=== PATIENT | female | born 1940 | race Caucasian/White ===

== ENCOUNTER 2018-09-13 00:08 | Emergency (ER) | payer MEDICARE, MEDICAID ==
[~2018-09-13] VITALS: Ht 172.7 cm; Wt 59.0 kg
[~2018-09-13 00:08] MED LIST: ALBU6.7H INH; FLUT1DIS3 INH; HYDR-4134 PO; MONT10TA24 PO; [UNRECOGNIZED DRUG - OTHER] PO
[2018-09-13] MEDS ORDERED: ONDANSETRON HCL 4MG/2ML INJ IV STA (01:28)
[2018-09-13] MEDS ORDERED: DIAZEPAM 2 MG TABLET PO ONE (01:30)
[2018-09-13 02:10] LABS: BASOPHILS % 0.6 % (0.0-2.0); EOSINOPHILS % 0.2 % (0.0-5.0); HEMATOCRIT. 38.7 % (36.0-48.0); HEMOGLOBIN. 12.8 g/dL (12.0-16.0); LYMPHOCYTES % 18.9 % (20.0-50.0); MEAN CORPUSCULAR HEMOGLOBIN 29.3 pg (28.0-32.0); MEAN CORPUSCULAR VOLUME 88.7 fL (81.0-99.0); MEAN PLATELET VOLUME 10.4 fl (7.4-10.4); MONOCYTES % 4.2 % (2.0-8.0); NEUTROPHILS % 76.1 % (40.0-76.0); PLATELET 207 x1000/uL (130-400); RED BLOOD CELL COUNT 4.37 mill/uL (4.2-5.4); RED CELL DISTRIBUTION WIDTH 14.7 % (11.6-14.6)
[2018-09-13 02:17] LABS: CHLORIDE 107 mEq/L (98-107)
[2018-09-13 03:52] VITALS: BP 154/75
== END 2018-09-13 04:17 | disposition home or self-care (01) ==
LOC: ER 01:16
DX: R42 Dizziness and giddiness (principal); R51 Headache; R11.2 Nausea with vomiting, unspecified; J45.909 Unspecified asthma, uncomplicated; I10 Essential (primary) hypertension; Z88.0 Allergy status to penicillin; Z79.899 Other long term (current) drug therapy
CPT/HCPCS: 36415; 70450; 71045; 80053; 84484; 85025; 93005; 96374; 99284; J2405

== ENCOUNTER 2019-12-24 02:06 | Emergency (ER) | payer MEDICARE, MEDICAID ==
[~2019-12-24] VITALS: Ht 167.6 cm; Wt 76.0 kg
[~2019-12-24 02:06] MED LIST changes: -ALBU6.7H INH; +ALBU6.7H11 INH; -MONT10TA24 PO; +MONT10TA26 PO
[2019-12-24] MEDS ORDERED: AMLODIPINE 5MG TABLET PO ONE (02:30)
[2019-12-24] MEDS ORDERED: NAPROXEN 375MG TABLET PO ONE (02:30)
[2019-12-24 03:01] LABS: BASOPHILS % 1.4 % (0.0-2.0); EOSINOPHILS % 0.4 % (0.0-5.0); LYMPHOCYTES % 32.9 % (20.0-50.0); MEAN CORPUSCULAR HEMOGLOBIN 29.8 pg (28.0-32.0); MEAN CORPUSCULAR VOLUME 87.3 fL (81.0-99.0); MEAN PLATELET VOLUME 9.9 fl (7.4-10.4); MONOCYTES % 6.4 % (2.0-8.0); NEUTROPHILS % 58.9 % (40.0-76.0); PLATELET 196 x1000/uL (130-400); RED BLOOD CELL COUNT 4.35 mill/uL (4.2-5.4); RED CELL DISTRIBUTION WIDTH 14.9 % (11.6-14.6)
[2019-12-24 03:07] LABS: CHLORIDE 107 mEq/L (98-107)
[2019-12-24 04:41] VITALS: BP 163/65
== END 2019-12-24 05:27 | disposition home or self-care (01) ==
LOC: ER 02:06
DX: I10 Essential (primary) hypertension (principal); R51 Headache; R42 Dizziness and giddiness; J45.909 Unspecified asthma, uncomplicated; Z90.49 Acquired absence of other specified parts of digestive tract; Z79.899 Other long term (current) drug therapy; Z88.0 Allergy status to penicillin
CPT/HCPCS: 36415; 80053; 85025; 93005; 99284

== ENCOUNTER 2022-09-24 11:27 | Inpatient (IN) | payer MEDICARE, MEDICAID ==
[2022-09-24] VITALS (18 sets, daily range): BP systolic 130; BP diastolic 90
[~2022-09-24] VITALS: Ht 154.9 cm; Wt 49.9 kg
[~2022-09-24 11:27] MED LIST changes: -ALBU6.7H11 INH; +ALBU6.7H15 INH; +MONT-39 PO; -MONT10TA26 PO
[2022-09-24 12:19] LABS: CLARITY URINE CLEAR (CLEAR); COLOR URINE YELLOW (YELLOW); KETONES URINE NEGATIVE (NEGATIVE); LEUKOCYTE ESTERASE URINE NEGATIVE (NEGATIVE); NITRITE URINE NEGATIVE (NEGATIVE); OCCULT BLOOD URINE NEGATIVE (NEGATIVE); PROTEIN URINE NEGATIVE (NEGATIVE); SPECIFIC GRAVITY URINE 1.015 (1.005-1.030); UROBILINOGEN URINE 0.2 E.U./dL (0.2-1.0)
[2022-09-24] MEDS ORDERED: ONDANSETRON 4MG ODT PO NR (13:15)
[2022-09-24] MEDS ORDERED: ACETAMINOPHEN 325MG TABLET PO NR (13:15)
[2022-09-24] MEDS ORDERED: MORPHINE SULFATE 2 MG/ML CPJ (NOT FOR IM USE) IV ONE ×2 (14:30→16:15)
[2022-09-24 14:46] LABS: CHLORIDE 103 mEq/L (98-107)
[2022-09-24 14:47] LABS: BASOPHILS % 0.6 % (0.0-2.0); HEMATOCRIT. 35.8 % (36.0-48.0); LYMPHOCYTES % 17.5 % (20.0-50.0); MEAN CORPUSCULAR HEMOGLOBIN 29.8 pg (28.0-32.0); MEAN CORPUSCULAR VOLUME 88.7 fL (81.0-99.0); MEAN PLATELET VOLUME 10.2 fl (7.4-10.4); MONOCYTES % 4.3 % (2.0-8.0); NEUTROPHILS % 77.6 % (40.0-76.0); PLATELET 207 x1000/uL (130-400); RED BLOOD CELL COUNT 4.04 mill/uL (4.2-5.4); RED CELL DISTRIBUTION WIDTH 14.5 % (11.6-14.6)
[2022-09-24] MEDS ORDERED: HYDROCODONE/ACETAMINOPHEN 5/325MG TABLET PO PRN (21:00)
[2022-09-24] MEDS ORDERED: ONDANSETRON HCL 4MG/2ML INJ IV PRN (21:00)
[2022-09-24] MEDS ORDERED: GUAIFENESIN 200MG/10ML SUGAR FREE UDC PO PRN (21:00)
[2022-09-24] MEDS ORDERED: DOCUSATE SODIUM 100MG CAPSULE PO PRN (21:00)
[2022-09-24] MEDS ORDERED: IPRATROPIUM/ALBUTEROL 0.5-3(2.5)MG/3ML NEB HHN SCH (21:00)
[2022-09-24] MEDS ORDERED: CLONIDINE 0.1MG TABLET PO PRN (21:00)
[2022-09-24] MEDS ORDERED: MAGNESIUM/ALUMINUM HYDROXIDE/SIMETHICONE 30ML UDC PO PRN (21:00)
[2022-09-24] MEDS ORDERED: ACETAMINOPHEN 650MG/20.3ML UDC GT PRN (21:00)
[2022-09-24] MEDS: PANTOPRAZOLE SODIUM 40 MG/VIAL IV SCH (21:15)
[2022-09-24] MEDS ORDERED: SODIUM CHLORIDE 0.45% 1,000 ML IV SCH (21:15)
[2022-09-24] MEDS ORDERED: NALOXONE HCL 0.4MG/ML VIAL IV PRN (21:15)
[2022-09-24] MEDS ORDERED: LOSARTAN POTASSIUM 100 MG TABLET PO NR (22:30)
[2022-09-24] MEDS: HYDROCHLOROTHIAZIDE 25MG TABLET PO SCH (22:43)
[2022-09-24] MEDS ORDERED: DEXT 5%/0.45% NACL 500ML 1,000 ML IV SCH (22:45)
[2022-09-24] MEDS ORDERED: DEXT 5%/0.9% NACL 1,000 ML IV SCH (23:30)
[2022-09-25] VITALS: BP 130/90
[2022-09-25 00:03] LABS: D-DIMER 1.05 mg/L FEU (<0.50)
[2022-09-25 00:07] LABS: PHOSPHORUS 3.9 mg/dL (2.5-4.9)
[2022-09-25 01:24] LABS: FOLIC ACID (FOLATE) SERUM >20 ng/mL ng/mL (>5.38); VITAMIN B12 SERUM 896 pg/mL (211-911)
[2022-09-25 01:30] LABS: CREATINE KINASE 117 IU/L (26-192); CREATINE KINASE MB FRACTION 1.2 ng/mL (0.5-3.6)
[2022-09-25 02:00] VITALS: BP 130/90
[2022-09-25 03:42] VITALS: BP 130/90
[2022-09-25 05:35] LABS: BASOPHILS % 0.4 % (0.0-2.0); EOSINOPHILS % 0.3 % (0.0-5.0); HEMATOCRIT. 33.8 % (36.0-48.0); HEMOGLOBIN. 11.3 g/dL (12.0-16.0); LYMPHOCYTES % 23.1 % (20.0-50.0); MEAN CORPUSCULAR HEMOGLOBIN 29.7 pg (28.0-32.0); MEAN CORPUSCULAR VOLUME 88.8 fL (81.0-99.0); MONOCYTES % 6.9 % (2.0-8.0); NEUTROPHILS % 69.3 % (40.0-76.0); PLATELET 194 x1000/uL (130-400); RED CELL DISTRIBUTION WIDTH 14.3 % (11.6-14.6)
[2022-09-25 05:45] LABS: CHLORIDE 104 mEq/L (98-107)
[2022-09-25 05:52] LABS: CREATINE KINASE MB FRACTION 1.6 ng/mL (0.5-3.6)
[2022-09-25 05:59] LABS: HDL CHOLESTEROL 106 mg/dL (40-59); LDL CHOLESTEROL 46 mg/dL (5-100); T4 FREE 1.07 ng/dL (0.76-1.46)
[2022-09-25 08:00] VITALS: BP 105/51
[2022-09-25] MEDS ORDERED: NIFEDIPINE XL 30MG TAB PO SCH (09:00)
[2022-09-25] MEDS ORDERED: ENOXAPARIN 30MG/0.3ML SYR SUBCUT SCH (09:00)
[2022-09-25] MEDS: PANTOPRAZOLE SODIUM 40 MG/VIAL IV SCH (09:57)
[2022-09-25] MEDS ORDERED: POTASSIUM CHLORIDE 20MEQ TABLET SR PO SCH (10:00)
[2022-09-25] MEDS: HYDROCHLOROTHIAZIDE 25MG TABLET PO SCH ×2 (10:05→10:07)
[2022-09-25 12:00] VITALS: BP 105/51
[2022-09-25 16:44] VITALS: BP 157/54
[2022-09-25] MEDS ORDERED: ATORVASTATIN CALCIUM 10MG TABLET PO SCH (21:00)
[2022-09-26] MEDS ORDERED: FAMOTIDINE 20MG TABLET PO SCH (07:20)
== END 2022-09-25 17:15 | disposition home or self-care (01) | DRG 394 ==
LOC: ER 12:25 → 6EST 18:01 → ENRESERV 20:27 → 6EST 23:35
PROVIDERS: ADMIT Internal Medicine; ATTEND Internal Medicine
DX: K40.90 Unilateral inguinal hernia, without obstruction or gangrene, not specified as recurrent (principal); R65.10 Systemic inflammatory response syndrome (SIRS) of non-infectious origin without acute organ dysfunction; I10 Essential (primary) hypertension; E78.00 Pure hypercholesterolemia, unspecified; J45.909 Unspecified asthma, uncomplicated; E87.6 Hypokalemia; M19.90 Unspecified osteoarthritis, unspecified site; R73.9 Hyperglycemia, unspecified; R74.8 Abnormal levels of other serum enzymes; Z88.0 Allergy status to penicillin; Z79.899 Other long term (current) drug therapy; Z79.51 Long term (current) use of inhaled steroids
CPT/HCPCS: 36415; 71045; 74176; 80053; 80061; 81003; 82550; 82553; 82607; 82652; 82728; 82746; 83036; 83540; 83550; 83735; 84100; 84439; 84443; 84481; 84484; 85025; 85379; 93005; 93970; 99285; C9113; J1650; J2270; Q0162